=== PATIENT | female | born 1985 | race Caucasian/White ===

== ENCOUNTER 2018-09-26 18:30 | Emergency (ER) | payer MEDICAID ==
[~2018-09-26] VITALS: Ht 165.1 cm; Wt 90.9 kg
[2018-09-26 18:38] VITALS: Ht 165.1 cm; Wt 90.9 kg
[2018-09-26] MEDS ORDERED: ELIQUIS5 MG PO (18:41)
[2018-09-26] MEDS ORDERED: ATARAX 25 MG TA25 MG PO (18:42)
[2018-09-26] MEDS ORDERED: ZANAFLEX4 MG PO (18:42)
[2018-09-26] MEDS ORDERED: HYDROCHLOROTHIA25 MG PO (18:42)
[2018-09-26] MEDS ORDERED: LYRICA75 MG PO (18:43)
[2018-09-26] MEDS ORDERED: MORPHINE SULFAT15 M4 PO (18:44)
[2018-09-26] MEDS ORDERED: PROZAC20 MG PO (18:44)
[2018-09-26] MEDS ORDERED: ALBUTEROL SULF8.5 GM INH (18:45)
[2018-09-26 19:15] LABS: BASOPHILS 0.4 % (0-2); EOSINOPHILS 0.6 % (0-7); HEMATOCRIT 40.4 % (36.0-48.0); HEMOGLOBIN 13.1 g/dL (12-16); IMMATURE GRANULOCYTES 0.2 % (0-5); LYMPHOCYTES 23.2 % (15-50); MCHC 32.4 g/dL (31.0-37.0); MCV 77.2 fL (80.0-100.0); MEAN PLATELET VOLUME 10.3 fL (7.4-10.4); MONOCYTES 5.8 % (2-11); NEUTROPHILS 69.8 % (40-80); RBC 5.23 10x6/uL (4.00-5.40); WBC 12.3 10x3/uL (4.8-10.8)
[2018-09-26 19:18] LABS: PLATELET COUNT 348 10x3/uL (130-400)
[2018-09-26 19:26] LABS: APTT 30.9 SECONDS (22.8-39.4); INR 1.01 (0.85-1.17); PROTIME 12.8 SECONDS (11.6-15.0)
[2018-09-26 19:28] LABS: D-DIMER-QUANTITATIVE < 0.27 ug/mLFEU (0.20-0.54)
[2018-09-26 19:38] LABS: ALBUMIN 3.6 g/dL (3.4-5.0); ALKALINE PHOSPHATASE 99 U/L (46-116); ALT (SGPT) 30 U/L (10-68); BILIRUBIN - TOTAL 0.27 mg/dL (0.2-1.3); CALC OSMOLALITY 283 mosm/kg (275-300); CALCIUM 9.2 mg/dL (8.5-10.1); CARBON DIOXIDE 27.3 mmol/L (21.0-32.0); CHLORIDE - SERUM 103 mmol/L (98-107); CREATININE - SERUM 0.8 mg/dL (0.6-1.3); POTASSIUM - SERUM 3.2 mmol/L (3.5-5.1); PROTEIN - SERUM 7.5 g/dL (6.4-8.2); SODIUM 141 mmol/L (136-145); UREA NITROGEN 9 mg/dL (7-18); eGFR NON AFRICAN AMERICAN 87 mL/min (90-120)
[2018-09-26 19:44] LABS: GLUCOSE 171 mg/dL (74-106)
[2018-09-26 20:50] VITALS: BP 132/84
== END 2018-09-26 20:50 | disposition home or self-care (01) ==
LOC: D.ER 18:30
PROVIDERS: Family Medicine
DX: M25.511 Pain in right shoulder (principal); M54.2 Cervicalgia; M79.605 Pain in left leg; M79.604 Pain in right leg; E87.6 Hypokalemia; F17.210 Nicotine dependence, cigarettes, uncomplicated

== ENCOUNTER → 2018-10-11 10:12 | Outpatient (CLI) | payer MEDICAID ==
[2018-09-26 18:38] VITALS: BMI 33.3
[~2018-10-11 10:12] MED LIST: ALBUTEROL SULF8.5 GM INH; ATARAX 25 MG TA25 MG PO; ELIQUIS5 MG PO; HYDROCHLOROTHIA25 MG PO; LYRICA75 MG PO; MORPHINE SULFAT15 M4 PO; PROZAC20 MG PO; ZANAFLEX4 MG PO
== END | disposition home or self-care (01) ==
LOC: D.US 10:12
PROVIDERS: ATTEND Nurse Practitioner
DX: N92.0 Excessive and frequent menstruation with regular cycle (principal)

== ENCOUNTER → 2018-10-29 12:21 | Outpatient (CLI) | payer MEDICAID ==
[2018-09-26 18:38] VITALS: BMI 33.3
== END | disposition home or self-care (01) ==
LOC: D.US 12:21
PROVIDERS: ATTEND Nurse Practitioner
DX: R94.6 Abnormal results of thyroid function studies (principal)

== ENCOUNTER 2019-07-23 05:00 | Inpatient (IN) | payer MEDICAID ==
[~2019-07-23] VITALS: Ht 160 cm; Wt 93.0 kg
[~2019-07-23 05:00] MED LIST changes: +LOVENOX30 MG/0.3 SC
[2019-07-23 21:09] VITALS: Ht 160 cm; Wt 93.0 kg
[2019-07-24] MEDS ORDERED: LOVENOX80 MG/0.8 SC (15:01)
[2019-07-25 08:15] VITALS: BP 129/72
[2019-07-25] MEDS ORDERED: LOVENOX80 MG/0.8 SC (15:01)
[2019-07-25] MEDS ORDERED: PERCOCET 7.5/321 TAB PO (15:01)
== END 2019-07-25 15:45 | disposition home or self-care (01) | DRG 742 ==
LOC: D.OPS 05:00 → D.PAN 07:00 → D.LD 11:34 → D.OPS 11:35 → D.LD 11:35 → D.WS 11:35
PROVIDERS: ADMIT Student in an Organized Health Care Education/Training Program; ATTEND Student in an Organized Health Care Education/Training Program
PROC: 0UT90ZL Resection of Uterus, Supracervical, Open Approach (ICD-10-PCS; principal; 2019-07-23)
PROC: 0UB70ZZ Excision of Bilateral Fallopian Tubes, Open Approach (ICD-10-PCS; 2019-07-23)
DX: N93.8 Other specified abnormal uterine and vaginal bleeding (principal); D68.59 Other primary thrombophilia

== ENCOUNTER 2020-07-11 15:28 | Emergency (ER) | payer MEDICAID ==
[~2020-07-11] VITALS: Ht 160 cm; Wt 94.1 kg
[~2020-07-11 15:28] MED LIST changes: +LOVENOX80 MG/0.8 SC; +PERCOCET 7.5/321 TAB PO
[2020-07-11 15:31] VITALS: BP 162/109; Ht 160 cm; Wt 94.1 kg
[2020-07-11 16:00] LABS: BILIRUBIN NEGATIVE (NEGATIVE); KETONE NEGATIVE (NEGATIVE); NITRITE NEGATIVE (NEGATIVE); UROBILINOGEN NORMAL mg/dL (< 2)
[2020-07-11 16:01] LABS: BACTERIA FEW HPF (NONE SEEN); SQUAMOUS EPITHELIAL 0-5 HPF (0-4); WHITE CELLS - URINE NONE SEEN HPF (0-4)
[2020-07-11 16:07] LABS: BASOPHILS 1.2 % (0-2); EOSINOPHILS 1.6 % (0-7); HEMATOCRIT 43.8 % (36.0-48.0); LYMPHOCYTES 28.7 % (15-50); MCH 30.1 pg (26.0-34.0); MCHC 34.2 g/dL (31.0-37.0); MEAN PLATELET VOLUME 9.2 fL (7.4-10.4); MONOCYTES 6.4 % (2-11); NEUTROPHILS 62.1 % (40-80); PLATELET COUNT 269 10x3/uL (130-400); RBC 4.98 10x6/uL (4.00-5.40); RDW 13.1 % (11.5-14.5)
[2020-07-11 16:15] LABS: CALC OSMOLALITY 277 mosm/kg (275-300); CALCIUM 8.8 mg/dL (8.5-10.1); CARBON DIOXIDE 25.3 mmol/L (21.0-32.0); CHLORIDE - SERUM 101 mmol/L (98-107); CREATININE - SERUM 0.9 mg/dL (0.6-1.3); POTASSIUM - SERUM 3.9 mmol/L (3.5-5.1); SODIUM 135 mmol/L (136-145); UREA NITROGEN 11 mg/dL (7-18); eGFR NON AFRICAN AMERICAN 75 mL/min (90-120)
[2020-07-11 16:17] LABS: GLUCOSE 264 mg/dL (74-106)
[2020-07-11 16:22] LABS: ALBUMIN 3.8 g/dL (3.4-5.0); ALKALINE PHOSPHATASE 103 U/L (30-120); ALT (SGPT) 39 U/L (10-68); BILIRUBIN - TOTAL 0.17 mg/dL (0.2-1.3); PROTEIN - SERUM 7.2 g/dL (6.4-8.2)
[2020-07-11] MEDS ORDERED: METHOCARBAMOL500 MG PO (17:44)
== END 2020-07-11 18:20 | disposition home or self-care (01) ==
LOC: D.ER 15:28
PROVIDERS: Family Medicine
DX: R10.32 Left lower quadrant pain (principal); E11.65 Type 2 diabetes mellitus with hyperglycemia; M54.5 Low back pain; E11.9 Type 2 diabetes mellitus without complications; J45.909 Unspecified asthma, uncomplicated; Z72.0 Tobacco use